=== PATIENT | female | born 1925 | race Caucasian/White ===

== ENCOUNTER 2016-10-22 13:31 | Emergency (ER) | payer OTHER, MEDICARE ==
[~2016-10-22] VITALS: Ht 167.6 cm; Wt 77.1 kg
[~2016-10-22 13:31] MED LIST: ADULT LOW DOSE81 MG PO; ARICEPT 5 MG TAB5 MG PO; ARICEPT10 MG PO; ARTIFICIAL TEAR15 M1 OPHTHALMIC; ASPIRIN EC81 M1 PO; AUGMENTIN 875875 MG PO; BABY ASA PO; BUSPIRONE HCL10 MG PO; BUSPIRONE PO; COLACE 100 MG100 MG PO; DARVOCET-N 1001 EACH PO; DEPAKOTE SPRIN125 MG PO; ENSURE ACTIVE PO; EUCERIN CREME57 GM TOP; FLEXERIL PO; FOSAMAX 70 MG T70 M1 PO; HYDROCODON-ACE1 EAC5 PO; LIPITOR20 MG PO; LISINOPRIL10 MG PO; MAXIDEX5 ML OP; MECLIZINE HCL12.5 MG PO; MULTIVITAMINS; MULTIVITAMINS PO; OYSTER SHELL C1 EA12 PO; PAXIL10 MG PO; PAXIL20 MG PO; PERCOCET 5-3251 EACH PO; PERIDEX15 ML MM; PRED FORTE 1% EY5 M1 OP; QUETIAPINE FUMA25 MG PO; SENNA PO; SENOKOT-S1 TA1 PO; SEROQUEL 25 MG25 MG PO; TYLENOL325 MG PO; XANAX 0.25 MG0.25 MG PO
[2016-12-29] MEDS ORDERED: XARELTO10 MG PO (13:29)
[2016-12-29] MEDS ORDERED: HYDROCODONE-APA1 TA1 PO (13:30)
== END 2016-10-22 15:15 ==
LOC: ER 13:31
DX: S09.90XA Unspecified injury of head, initial encounter (principal); R07.89 Other chest pain; I10 Essential (primary) hypertension; F03.90 Unspecified dementia, unspecified severity, without behavioral disturbance, psychotic disturbance, mood disturbance, and anxiety; Z87.891 Personal history of nicotine dependence; F10.99 Alcohol use, unspecified with unspecified alcohol-induced disorder; W01.10XA Fall on same level from slipping, tripping and stumbling with subsequent striking against unspecified object, initial encounter; Y93.89 Activity, other specified; Y92.89 Other specified places as the place of occurrence of the external cause; Y99.8 Other external cause status